=== PATIENT | female | born 1930 | race Caucasian/White ===

== ENCOUNTER → 2016-08-17 | Outpatient (CLI) | payer OTHER ==
[~2016-08-17] MED LIST: ALEVE220 MG PO; ASPERDRINK81 MG PO; ASPIRIN325 MG PO; AVALIDE 12.5 MG1 TA2 PO; CARAFATE1 G1 PO; CIPRO250 MG PO; COMPAZINE10 MG PO; Carafate1 GM PO; DAYPRO600 M1 PO; FISH OIL 10001000 MG PO; Lopressor25 MG PO; METOPROLOL SR50 MG PO; NEXIUM40 MG PO; NORCO 5-325 TA1 EACH PO; OMEPRAZOLE20 MG PO; PRILOSEC20 M2 PO; PRILOSEC20 MG PO; PRILOSEC40 M1 PO; REGLAN 5MG/5 MG/5 ML PO; SIMVASTATIN20 MG PO; SYMBICORT1 AE1 IH; TRIAMTERENE/HCT1 TA3 PO; VICODIN 5/500 505 MG PO; VITAMIN B121000 MC2 SL; VITAMIN D1000 IU PO; VITAMIN D2000 IU PO; VYTORIN 10 MG-21 TA1 PO; ZETIA10 MG PO; Zofran4 MG PO
[2016-08-17 13:19] LABS: BASO % 0.6 % (0.0-1.0); EOS # 0.2 10*3/uL (0.0-0.4); EOS % 3.4 % (1.0-4.0); HEMATOCRIT 39.9 % (37.0-47.0); HEMOGLOBIN 12.8 g/dl (12.0-16.0); LYMPH # 1.3 10*3/uL (1.3-4.4); LYMPH % 24.8 % (27.0-41.0); MEAN CELL VOLUME 88.7 fl (81.0-99.0); MEAN CORPUSCULAR HGB 28.4 pg (27.0-31.0); MEAN CORPUSCULAR HGB CONC 32.1 g/dl (33.0-37.0); MEAN PLATELET VOLUME 9.8 fl (9.6-12.3); MONO # 0.7 10*3/uL (0.1-1.0); MONO % 12.9 % (3.0-9.0); NEUT # 3.1 10*3/uL (2.3-7.9); NEUT % 57.7 % (47.0-73.0); PLATELET COUNT AUTOMATED 239 10*3/uL (130-400); RED CELL DISTRI WIDTH 14.6 % (0-14.5); WHITE BLOOD COUNT 5.3 10*3/uL (4.8-10.8)
[2016-08-17 13:52] LABS: ALBUMIN 3.4 gm/dl (3.1-4.5); ALKALINE PHOSPHATASE 115 U/L (45-117); BILIRUBIN, DIRECT < 0.1 mg/dL (0.0-0.2); BILIRUBIN, TOTAL 0.5 mg/dl (0.2-1.0); BUN 16 mg/dl (7-24); CARBON DIOXIDE 28 mmol/L (21-32); CHLORIDE 104 mmol/L (98-107); EST GLOM FILT AFRICAN AMERICAN > 60 ml/min; GLUCOSE 120 mg/dL (65-99); POTASSIUM 4.5 mmol/L (3.5-5.1); SGOT/AST 11 IU/L (3-35); SGPT/ALT 18 U/L (12-78); SODIUM 139 mmol/L (136-145); TOTAL PROTEIN 7.7 gm/dL (6.4-8.2)
== END | disposition home or self-care (01) ==
LOC: LAB 12:03
PROVIDERS: Family Medicine
DX: Z79.899 Other long term (current) drug therapy (principal)

== ENCOUNTER → 2016-11-21 | Outpatient (CLI) | payer OTHER ==
[2016-11-21 08:09] LABS: BASO % 0.9 % (0.0-1.0); EOS # 0.3 10*3/uL (0.0-0.4); EOS % 5.5 % (1.0-4.0); HEMATOCRIT 39.8 % (37.0-47.0); HEMOGLOBIN 12.8 g/dl (12.0-16.0); LYMPH # 1.1 10*3/uL (1.3-4.4); LYMPH % 23.4 % (27.0-41.0); MEAN CELL VOLUME 87.7 fl (81.0-99.0); MEAN CORPUSCULAR HGB 28.2 pg (27.0-31.0); MEAN CORPUSCULAR HGB CONC 32.2 g/dl (33.0-37.0); MEAN PLATELET VOLUME 9.4 fl (9.6-12.3); MONO # 0.6 10*3/uL (0.1-1.0); MONO % 12.8 % (3.0-9.0); NEUT # 2.6 10*3/uL (2.3-7.9); PLATELET COUNT AUTOMATED 224 10*3/uL (130-400); RED BLOOD COUNT 4.54 10*6/uL (4.10-5.10); RED CELL DISTRI WIDTH 15.6 % (0-14.5); WHITE BLOOD COUNT 4.5 10*3/uL (4.8-10.8)
[2016-11-21 08:33] LABS: ALBUMIN 3.3 gm/dl (3.1-4.5); ALKALINE PHOSPHATASE 115 U/L (45-117); BILIRUBIN, DIRECT < 0.1 mg/dL (0.0-0.2); BUN 20 mg/dl (7-24); CHLORIDE 105 mmol/L (98-107); CREATININE 1.12 mg/dL (0.55-1.02); POTASSIUM 4.3 mmol/L (3.5-5.1); SGOT/AST 10 IU/L (3-35); SGPT/ALT 17 U/L (12-78); SODIUM 140 mmol/L (136-145); TOTAL PROTEIN 7.9 gm/dL (6.4-8.2)
== END | disposition home or self-care (01) ==
LOC: LAB 07:35
PROVIDERS: Family Medicine
DX: I10 Essential (primary) hypertension (principal)

== ENCOUNTER 2016-11-27 14:59 | Inpatient (IN) | payer OTHER ==
[~2016-11-27] VITALS: Ht 152.4 cm; Wt 69.4 kg
--- NOTE | ~2016-11-27 | CON ---
[place], [place] REPORT OF CONSULTATION NAME: ROSINA VARGHESE [facility] #: [id number] UNIT #: [id number] ROOM: 405 DOCTOR: KEVIN GARZA MD BIRTHDATE: [birth year] DOS: 11/28/2016 HISTORY OF PRESENT ILLNESS: This is an 86-year-old -Cypriot woman with a history of hyperlipidemia, hypertension, who had a bioprosthetic aortic valve implanted many years ago. She also may have had a myocardial infarction some 10 years ago or so. She is not sure of it. I do not believe she had any stents deployed. She also has GERD and hyperlipidemia. She does not smoke nor does she drink alcoholic beverages. She lives at home and is independent, cuts her own lawn. Yesterday, she had developed some retrosternal chest discomfort that lasted for a short time and it was not accompanied by any sweating, nausea, shortness of breath or palpitations. She does not have any swelling in the legs, has not had any orthopnea, no neurological symptoms. HOME MEDICATIONS: Symbicort, aspirin 81 daily, metoprolol tartrate 25 b.i.d., omeprazole 20 daily, cyanocobalamin 1000 mcg sublingually daily, Avalide, D Lo, cholecalciferol. PHYSICAL EXAMINATION: GENERAL: Reveals a patient who is pleasant, alert, oriented. She is comfortable. There is no finger clubbing. No thyromegaly is present. VITAL SIGNS: Pulse is 66 and regular, blood pressure 149/72. NECK: JVP is normal. No carotid bruits are present. HEART: Auscultation reveals somewhat loud aortic component of the second heart sound over the aortic area and grade 1/6 early peaking systolic murmur. Good pedal pulses and no edema in lower extremities. LUNGS: Clear to auscultation. LABORATORY DATA: An ECG showed normal sinus rhythm with a normal pattern except for left axis deviation. Troponin I level was normal on admission and maximino to 0.7 and 0.072 and 0.087. IMPRESSION: 1. This patient with known coronary artery disease and remote myocardial infarction, slightly increased troponin level; therefore, acute chest pain. Coronary artery occlusion is a good possibility and I think a Lexiscan Cardiolite study would be appropriate. 2. Prosthetic aortic valve is functioning normally. I thank you on behalf of Dr. Bowman for this consult. [place], [place] REPORT OF CONSULTATION NAME: ABIMAELROSINA Carlo UNIT #: [id number] ROOM: 405 DOCTOR: KEVIN GARZA MD BIRTHDATE: [birth year] KEVIN GARZA MD CM:CONSTR:REPORT OF CONSULTATION [id number] 11/29/16 0113 interface
--- NOTE | ~2016-11-27 | PR ---
[place], [place] PROGRESS NOTE NAME: ROSINA VARGHESE [facility] #: [id number] UNIT #: [id number] ROOM: 405 DOCTOR: FRANC JEREZ MD BIRTHDATE: [birth year] DOS: 11/29/2016 SUBJECTIVE: Discussed with nursing staff. The patient's cardiac status appears to be stable. The patient was seen by Dr. Briceño who was covering for me yesterday. The patient was scheduled for a Lexiscan Cardiolite stress test. The patient refused and the family refused. They do understand the consequences. OBJECTIVE: VITAL SIGNS: Blood pressure is 158/80. NECK: Supple, no JVD. LUNGS: Diminished breath sounds. HEART: Heart sounds are regular. NEUROLOGIC: Stable. REVIEW OF SYSTEMS: As per HPI. LABORATORY DATA: Hemoglobin and hematocrit 12 and 36. A1c is 5.6. The last troponin was 0.087. IMPRESSION: The patient with known coronary artery disease with angina and mildly elevated troponin. The patient was supposed to have a Lexiscan Cardiolite stress test. The patient refuses, so meantime continue the beta-blockers, lipid lowering agents, and aspirin. The patient has a prosthetic aortic valve. Get an echocardiogram. We will review the echocardiogram. Echocardiogram review showed an ejection fraction well preserved to be 65%. No wall motion abnormalities. Prosthetic aortic valve is not very well visualized; if needed, consideration should be given for a NII. PLAN: Continue medical treatment and we will follow up. FRANC JEREZ MD CM:PNTRANS [id number] FRANC JEREZ MD 11/30/16 0211 interface
--- NOTE | ~2016-11-27 | O ---
[place], [place] OPERATIVE NOTE NAME: ROSNIA VARGHESE [facility] #: [id number] UNIT #: [id number] ROOM: 405 DOCTOR: NIALL HOWARDJOYCEMAMMOTHMARIANNA BIRTHDATE: [birth year] DOS: 11/30/2016 GASTROENDOSCOPIC REPORT. INDICATIONS: An 86-year-old patient who has presented with chief complaint of hematemesis, undergoing investigation. The patient has been on ibuprofen 1 tablet in the morning 200 mg plus aspirin 81 mg and the same in the evening. The patient presented with hematemesis her H and H was 13 and 41. Subsequently, the H and H dropped to 10 and 33. Her INR was 0.9. Comprehensive metabolic panel, creatinine 1.6. GFR of 59, lipase was 72. Troponin initially negative, slight elevation subsequently was identified. CT scan, no acute intracranial pathologies. Flat plate of the abdomen, no obstruction. PAST MEDICAL HISTORY: Associated with hypertension, hyperlipidemia, myocardial infarction, gastroesophageal reflux, renal insufficiency. PAST SURGICAL HISTORY: Cholecystectomy, cardiac catheterization, valvular heart disease, knee prosthesis. SOCIAL HISTORY: Nonsmoker, nonalcohol consumer in routine; however, she has a glass of wine periodically. FAMILY HISTORY: Noncontributory. Case has been discussed with the daughter. ALLERGIES: IODINE. MEDICATIONS: List has been reviewed. She has been on Carafate at home as well as other medications including metoclopramide a.c. and bedtime. PROCEDURE: Today's procedure part of investigation is panendoscopy plus biopsy and photographic series. PREMEDICATION: Versed and Diprivan. SCOPE: Olympus forward-viewing gastroscope Q10 video. REPORT: After putting the patient in the left lateral position and after application of lubricant to the scope, the scope was introduced. Thereafter, under direct visualization, I advanced through the length of esophagus without difficulty. Distal esophageal ulceration secondary to reflux in the lower third of the esophagus was expressed and noticed. Hiatal hernia seen. Gastritis and bile reflux etiology was identified. Evidence of Ozzy fundoplication noticed, which is not deeply intact. Gastric pouch was entered. Gastritis was seen. Antral polyp was identified, biopsy from which was obtained, expecting to be hyperplastic polyp. Duodenal bulb, second and third part within normal limits. The patient extubated, tolerated procedure well. IMPRESSION: Distal esophageal ulcer secondary to reflux; hiatal hernia, status post previous Ozzy fundoplication, gastritis of bile reflux etiology; gastric polyp, status post biopsy. [place], [place] OPERATIVE NOTE NAME: ROSINA VARGHESE UNIT #: [id number] ROOM: 405 DOCTOR: NIALL HOWARD,REMEDIOS BIRTHDATE: [birth year] PLAN AND DISCUSSION: We are going to keep her on Protonix 40 mg IV b.i.d., sucralfate 2 gram before meals and at bedtime, Reglan 5 mg before meals and at bedtime. Elevation of the head of the bed 6 inches all time. Gaviscon 2 tablets at bedtime to be chewed. Furthermore, we have found that the patient has greater than 100,000 bacteria in her urine, suspected to be E. coli; therefore, sensitivity list has been reviewed and we are choosing ciprofloxacin 400 mg IV b.i.d. We are going to continue with IV hydration and clinical reassessment. Zofran for antiemetics. REMEDIOS TIERNEY MD CM:OPRECORD:OPERATIVE NOTE [id number] REMEDIOS TIERNEY MD 11/30/16 1305 interface
[2016-11-27 15:16] VITALS: BP 160/90
[2016-11-27 16:00] VITALS: BP 158/70
[2016-11-27 16:01] LABS: BASO % 0.6 % (0.0-1.0); EOS # 0.1 10*3/uL (0.0-0.4); EOS % 0.8 % (1.0-4.0); HEMATOCRIT 41.7 % (37.0-47.0); HEMOGLOBIN 13.8 g/dl (12.0-16.0); LYMPH # 1.3 10*3/uL (1.3-4.4); LYMPH % 19.9 % (27.0-41.0); MEAN CELL VOLUME 84.8 fl (81.0-99.0); MEAN CORPUSCULAR HGB CONC 33.1 g/dl (33.0-37.0); MEAN PLATELET VOLUME 9.3 fl (9.6-12.3); MONO # 0.5 10*3/uL (0.1-1.0); MONO % 7.3 % (3.0-9.0); NEUT # 4.7 10*3/uL (2.3-7.9); NEUT % 71.1 % (47.0-73.0); PLATELET COUNT AUTOMATED 244 10*3/uL (130-400); RED BLOOD COUNT 4.92 10*6/uL (4.10-5.10); RED CELL DISTRI WIDTH 15.3 % (0-14.5); WHITE BLOOD COUNT 6.6 10*3/uL (4.8-10.8)
[2016-11-27 16:10] LABS: ACT PARTIAL THROMBO TIME 26.6 SECONDS (20.8-31.5); INTERNATIONAL NORM RATIO 0.9 (2.0-3.5)
[2016-11-27 16:17] LABS: ALBUMIN 3.6 gm/dl (3.1-4.5); BUN 20 mg/dl (7-24); CHLORIDE 104 mmol/L (98-107); CREATININE 1.06 mg/dL (0.55-1.02); LIPASE 72 U/L (73-393); MAGNESIUM 1.7 mg/dL (1.5-2.1); SGOT/AST 15 IU/L (3-35); SGPT/ALT 17 U/L (12-78); SODIUM 140 mmol/L (136-145); TOTAL PROTEIN 8.6 gm/dL (6.4-8.2)
[2016-11-27 16:20] LABS: ALKALINE PHOSPHATASE 127 U/L (45-117)
[2016-11-27 16:23] LABS: TROPONIN I < 0.015 ng/ml (<0.045)
--- NOTE | 2016-11-27 18:05 | NUR ---
A 86, admitted to , under the services of CORINA Alvarez DO with a diagnosis of SHORTNESS OF BREATH. Chief complaint is SHORTNESS OF BREATH. Patient arrived via bed from ER. Monitor applied. Initial assessment completed. Vital signs taken and recorded. CORINA ALVAREZ DO notified of admission to the unit. Orders received. See assessment for past medical history, medications and allergies. Patient and/or family oriented to unit. [facility]. Clothing/patient valuable form completed. RADAMES YO
[2016-11-27] MEDS ORDERED: AVALIDE 150-121 EACH PO (18:09)
[2016-11-27] MEDS ORDERED: SYMBICORT INH (18:13)
--- NOTE | 2016-11-27 19:33 | NUR ---
NOTIFIED OF ELEVATED TROPONIN 0.072.
--- NOTE | 2016-11-27 19:36 | NUR ---
IN TO SEE PATIENT AT THIS TIME. PT ALERT AND ORIENTED X3. PATIENT DENIES CHEST PAIN, BUT STATES SHE HAS HAD MINOR EPIGASTRIC DISCOMFORT. SHE STATES SHE THINKS IT IS FROM HER NAUSEA/VOMITING. PATIENT ENCOURAGED TO USE CALL LIGHT FOR ANY NEW/WORSENING PAIN IN CHEST/EPIGASTRIC REGION. PER , RN TO MAKE SURE EKG ON CHART. EKG FROM TODAY ON CHART. WILL CONTINUE TO MONITOR PATIENT. CALL LIGHT LEFT IN REACH. FAMILY AT BEDSIDE.
[2016-11-27 20:00] VITALS: BP 158/70
--- NOTE | 2016-11-27 22:41 | NUR ---
PATIENT MEDICATED WITH IV ZOFRAN PER ORDER FOR 3 EPISODES OF EMESIS AND NAUSEA. NEW GOWN, WASHCLOTHS, CRACKERS/GINGERALE PROVIDED FOR COMFORT MEASURES. WILL MONITOR EFFECTIVENESS. CALL LIGHT LEFT WITHIN REACH.
--- NOTE | 2016-11-27 22:42 | NUR ---
DR MAZA MADE AWARE OF CRITICAL TROPONIN 0.087 HE SAID HE IS GOING TO PUT IN A CONSULT ORDER FOR CARDIOLOGY
--- NOTE | 2016-11-27 23:34 | NUR ---
NOTIFIED OF CONSULT. ORDER FOR ECHOCARDIOGRAM IN AM RECEIVED. AWARE THAT NO OTHER TROPONINS HAVE BEEN ORDERED. STATES HE DOES NOT WANT ANY MORE ORDERED AT THIS TIME.
[2016-11-28] VITALS: BP 149/72
--- NOTE | 2016-11-28 05:36 | NUR ---
PATIENT MEDICATED WITH IV ZOFRAN FOR C/O NAUSEA AND VOMITING. WILL MONITOR EFFECTIVENESS. CALL LIGHT LEFT IN REACH.
[2016-11-28 05:41] LABS: BILIRUBIN NEGATIVE (NEGATIVE); BLOOD 2+ (NEGATIVE); CLARITY SL CLOUDY (CLEAR); COLOR YELLOW (YELLOW); GLUCOSE NEGATIVE (NEGATIVE); KETONE TRACE (NEGATIVE); LEUKO ESTERASE NEGATIVE (NEGATIVE); NITRITE NEGATIVE (NEGATIVE); PH 5.5 (5.0-9.0); UROBILINOGEN 0.2 E.U./dl (0.2-1.0)
[2016-11-28 05:52] LABS: BACTERIA 4+; RBC 16-20 rbc/hpf (0-2)
--- NOTE | 2016-11-28 06:11 | NUR ---
EARLIER MEDICATION APPEARS EFFECTIVE. PATIENT SLEEPING WITH NO EPISODES OF EMESIS. WILL MONITOR.
[2016-11-28 06:22] LABS: BASO % 0.4 % (0.0-1.0); HEMATOCRIT 45.7 % (37.0-47.0); HEMOGLOBIN 14.9 g/dl (12.0-16.0); LYMPH # 0.7 10*3/uL (1.3-4.4); LYMPH % 8.2 % (27.0-41.0); MEAN CELL VOLUME 84.9 fl (81.0-99.0); MEAN CORPUSCULAR HGB 27.7 pg (27.0-31.0); MEAN CORPUSCULAR HGB CONC 32.6 g/dl (33.0-37.0); MEAN PLATELET VOLUME 9.7 fl (9.6-12.3); MONO # 0.5 10*3/uL (0.1-1.0); MONO % 5.6 % (3.0-9.0); NEUT # 7.2 10*3/uL (2.3-7.9); NEUT % 84.4 % (47.0-73.0); PLATELET COUNT AUTOMATED 268 10*3/uL (130-400); RED BLOOD COUNT 5.38 10*6/uL (4.10-5.10); RED CELL DISTRI WIDTH 15.4 % (0-14.5); WHITE BLOOD COUNT 8.5 10*3/uL (4.8-10.8)
[2016-11-28 06:50] LABS: ALBUMIN 3.5 gm/dl (3.1-4.5); CREATININE 1.09 mg/dL (0.55-1.02); MAGNESIUM 1.8 mg/dL (1.5-2.1); PHOSPHOROUS 3.3 mg/dL (2.5-4.9); POTASSIUM 4.1 mmol/L (3.5-5.1); TOTAL PROTEIN 8.1 gm/dL (6.4-8.2)
[2016-11-28 06:56] LABS: ACT PARTIAL THROMBO TIME 25.5 SECONDS (20.8-31.5); THYROID STIM HORMONE (HS) 1.28 uIU/ml (0.358-4.75)
[2016-11-28 07:34] LABS: VITAMIN D, 25-HYDROXY 37.7 ng/mL (30-100)
[2016-11-28 08:00] VITALS: BP 116/62
--- NOTE | 2016-11-28 08:30 | NUR ---
Swatch Paster in to talk to patient. Patient states lives at HOME IN [address] ALONE with PT DRIVES. CUTS HER OWN GRASS, COOKS AND DOES HER LAUNDRY. DAUGHTER LIVES ON SAME STREET AND CHECKS ON HER AND HELPS IF NEEDED.. There are 0 steps in the home. Physician: DR FORTUNE Pharmacy: [facility] Home health services: NONE Patient's level of ADLs: INDEPENDENT Patient has working utilities: YES DME: NONE Follow-up physician's appointment after d/c: Does patient want to access PORTAL?: Discharge plan HOME. CRISTINO TOM
[2016-11-28 12:00] VITALS: BP 152/70
--- NOTE | 2016-11-28 12:28 | NUR ---
ZOFRAN 4 MG GIVEN FOR C/O NAUSEA.
[2016-11-28 16:00] VITALS: BP 146/68
--- NOTE | 2016-11-28 17:52 | NUR ---
NOTIFIED DR JEREZ OF PT WISHES NOT TO HAVE LEXISCAN DONE IN AM, DAUGHTER AND GRANDAUGHTER PRESENT AND AGREED D/T PT GETS "VIOLENTLY NAUSEOUS " WHEN SHE HAS STRESS TESTS DONE. PT FLATLY REFUSES TO DO STRESS AND DR JEREZ ORDERED IT CANCELLED,
--- NOTE | 2016-11-28 19:48 | NUR ---
PATIENT AWAKE IN BED AT THIS TIME. PATIENT STATES SHE IS FEELING MUCH BETTER THAN YESTERDAY AND STATES SHE IS NOT NAUSEOUS. NO OTHER COMPLAINTS VOICED AT THIS TIME. WILL MONITOR PATIENT. CALL LIGHT LEFT IN REACH.
[2016-11-28 20:00] VITALS: BP 139/77
--- NOTE | 2016-11-28 22:39 | NUR ---
PATIENT MEDICATED WITH IV ZOFRAN PER PRN ORDER FOR NAUSEA. PATIENT STATES SHE IS STILL FEELING MUCH BETTER THAN SHE HAD FELT YESTERDAY, BUT STATES SHE DOESN'T WANT TO START VOMITING AGAIN. WILL MONITOR EFFECTIVENESS. CALL LIGHT LEFT IN REACH. N
--- NOTE | 2016-11-28 23:38 | NUR ---
PATIENT STATES EARLIER MEDICATION WAS EFFECTIVE. PATIENT DENIES NAUSEA AT CURRENT TIME. WILL CONTINUE TO MONITOR. CALL LIGHT IN REACH.
[2016-11-29] VITALS: BP 158/81
[2016-11-29 07:03] LABS: BASO % 0.7 % (0.0-1.0); EOS % 0.5 % (1.0-4.0); LYMPH # 1.1 10*3/uL (1.3-4.4); LYMPH % 18.3 % (27.0-41.0); MEAN CELL VOLUME 85.2 fl (81.0-99.0); MEAN CORPUSCULAR HGB 28.2 pg (27.0-31.0); MEAN CORPUSCULAR HGB CONC 33.1 g/dl (33.0-37.0); MEAN PLATELET VOLUME 9.4 fl (9.6-12.3); MONO # 0.7 10*3/uL (0.1-1.0); MONO % 11.3 % (3.0-9.0); NEUT % 68.7 % (47.0-73.0); PLATELET COUNT AUTOMATED 189 10*3/uL (130-400); RED BLOOD COUNT 4.26 10*6/uL (4.10-5.10); RED CELL DISTRI WIDTH 15.5 % (0-14.5); WHITE BLOOD COUNT 5.8 10*3/uL (4.8-10.8)
[2016-11-29 07:05] LABS: HEMATOCRIT 36.3 % (37.0-47.0)
[2016-11-29 07:36] LABS: BUN 22 mg/dl (7-24); CHLORIDE 105 mmol/L (98-107); CREATININE 1.03 mg/dL (0.55-1.02); POTASSIUM 3.9 mmol/L (3.5-5.1); SODIUM 139 mmol/L (136-145)
[2016-11-29 08:00] VITALS: BP 122/74
[2016-11-29 12:00] VITALS: BP 120/49
--- NOTE | 2016-11-29 13:59 | NUR ---
DR POLO CALLED TO REQUEST SOMETHING FOR DIARRHEA.
[2016-11-29 16:00] VITALS: BP 158/76
[2016-11-29 20:00] VITALS: BP 128/65
[2016-11-30] VITALS (9 sets, daily range): BP systolic 111–142; BP diastolic 42–88
--- NOTE | 2016-11-30 04:03 | NUR ---
PT ASLEEP IN BED AT THIS TIME. RESPIRATIONS EASY, NO S/S OF DISTRESS NOTED. WILL MONITOR. CALL LIGHT IN REACH.
[2016-11-30 06:59] LABS: BASO % 0.7 % (0.0-1.0); EOS # 0.1 10*3/uL (0.0-0.4); HEMOGLOBIN 10.5 g/dl (12.0-16.0); LYMPH # 0.9 10*3/uL (1.3-4.4); LYMPH % 20.4 % (27.0-41.0); MEAN CELL VOLUME 86.8 fl (81.0-99.0); MEAN CORPUSCULAR HGB 27.6 pg (27.0-31.0); MEAN CORPUSCULAR HGB CONC 31.8 g/dl (33.0-37.0); MEAN PLATELET VOLUME 9.8 fl (9.6-12.3); MONO # 0.6 10*3/uL (0.1-1.0); MONO % 12.2 % (3.0-9.0); NEUT # 2.9 10*3/uL (2.3-7.9); PLATELET COUNT AUTOMATED 154 10*3/uL (130-400); RED CELL DISTRI WIDTH 15.5 % (0-14.5); WHITE BLOOD COUNT 4.6 10*3/uL (4.8-10.8)
--- NOTE | 2016-11-30 07:45 | NUR ---
PT DOWN FOR EGD AT THIS TIME.
--- NOTE | 2016-11-30 09:50 | NUR ---
PT BACK FROM EGD AT THIS TIME.
--- NOTE | 2016-11-30 11:04 | NUR ---
SPOKE WITH DR TIERNEY, STATED TO GIVE PT A GERD DIET AND TO KEEP HOB ELEVATED 30 DEGREES AT ALL TIMES.
--- NOTE | 2016-11-30 13:54 | NUR ---
DR POLO NOTIFIED OF PT'S COMPLAINTS OF 3 EPISODES OF DIARRHEA, STATED TO COLLECT STOOL FOR CDIFF BEFORE WE GIVE HER ANYTHING FOR THE DIARRHEA.
--- NOTE | 2016-11-30 14:00 | NUR ---
PT REQUESTING SOMETHING FOR HER DIARRHEA, EDUCATED PT ON IMPORTANCE OF OBTAINING STOOL SAMPLE PRIOR TO GIVING HER SOMETHING FOR THE DIARRHEA. PT VERBALIZED UNDERSTANDING.
--- NOTE | 2016-11-30 18:00 | NUR ---
PT RESTING IN BED, NO DISTRESS NOTED. CALL LIGHT WITHIN REACH.
[2016-12-01] VITALS: BP 107/65; BP 120/50
[2016-12-01 08:00] VITALS: BP 111/42
[2016-12-01 08:05] LABS: BASO % 0.7 % (0.0-1.0); EOS # 0.2 10*3/uL (0.0-0.4); EOS % 3.5 % (1.0-4.0); HEMATOCRIT 31.4 % (37.0-47.0); LYMPH # 0.8 10*3/uL (1.3-4.4); LYMPH % 17.5 % (27.0-41.0); MEAN CELL VOLUME 87.5 fl (81.0-99.0); MEAN CORPUSCULAR HGB 27.9 pg (27.0-31.0); MEAN CORPUSCULAR HGB CONC 31.8 g/dl (33.0-37.0); MEAN PLATELET VOLUME 9.7 fl (9.6-12.3); MONO # 0.5 10*3/uL (0.1-1.0); MONO % 11.9 % (3.0-9.0); NEUT # 2.8 10*3/uL (2.3-7.9); NEUT % 65.7 % (47.0-73.0); PLATELET COUNT AUTOMATED 143 10*3/uL (130-400); RED BLOOD COUNT 3.59 10*6/uL (4.10-5.10); RED CELL DISTRI WIDTH 15.3 % (0-14.5); WHITE BLOOD COUNT 4.3 10*3/uL (4.8-10.8)
--- NOTE | 2016-12-01 10:15 | NUR ---
DR POLO IN TO SEE PT AT THIS TIME.
--- NOTE | 2016-12-01 11:07 | NUR ---
DR SINGLETARY IN TO SEE PT AT THIS TIME.
[2016-12-01 12:00] VITALS: BP 152/76
[2016-12-01] MEDS ORDERED: LOPRESSOR25 MG PO (13:31)
[2016-12-01] MEDS ORDERED: Carafate1 GM/10 ML PO ×2 (13:31→13:49)
[2016-12-01] MEDS ORDERED: B12100 MC1 PO (13:31)
[2016-12-01] MEDS ORDERED: CIPRO500 MG PO (13:31)
[2016-12-01] MEDS ORDERED: HYDR25T PO (13:31)
[2016-12-01] MEDS ORDERED: PROTONIX40 MG PO ×2 (13:34→13:49)
--- NOTE | 2016-12-01 14:25 | NUR ---
Discharge instructions reviewed with patient/family. Patient receptive and verbalizes understanding. Follow-up care arranged. Written instructions given to patient/family. Pt transported to [facility] via wheelchair, accompanied by staff. LUBA GIRON
== END 2016-12-01 14:25 | disposition home or self-care (01) | DRG 392 ==
LOC: ED 14:59 → 4E 17:25
PROVIDERS: Internal Medicine; Internal Medicine Nephrology; Physician Assistant; ADMIT Internal Medicine
PROC: 0DB58ZX Excision of Esophagus, Via Natural or Artificial Opening Endoscopic, Diagnostic (ICD-10-PCS; principal; 2016-11-30)
PROC: 0DB68ZX Excision of Stomach, Via Natural or Artificial Opening Endoscopic, Diagnostic (ICD-10-PCS; principal; 2016-11-30)
DX: K21.9 Gastro-esophageal reflux disease without esophagitis (principal); R65.10 Systemic inflammatory response syndrome (SIRS) of non-infectious origin without acute organ dysfunction; E86.0 Dehydration; K92.2 Gastrointestinal hemorrhage, unspecified; N18.3 Chronic kidney disease, stage 3 (moderate); E83.52 Hypercalcemia; I08.1 Rheumatic disorders of both mitral and tricuspid valves; K22.10 Ulcer of esophagus without bleeding; I12.9 Hypertensive chronic kidney disease with stage 1 through stage 4 chronic kidney disease, or unspecified chronic kidney disease; R73.9 Hyperglycemia, unspecified; Z96.651 Presence of right artificial knee joint; J45.909 Unspecified asthma, uncomplicated; I25.119 Atherosclerotic heart disease of native coronary artery with unspecified angina pectoris; K31.7 Polyp of stomach and duodenum; R74.0 Nonspecific elevation of levels of transaminase and lactic acid dehydrogenase [LDH]; E78.5 Hyperlipidemia, unspecified; E53.8 Deficiency of other specified B group vitamins; E66.3 Overweight; K44.9 Diaphragmatic hernia without obstruction or gangrene; Z91.041 Radiographic dye allergy status; Z79.82 Long term (current) use of aspirin; Z79.899 Other long term (current) drug therapy; Z90.49 Acquired absence of other specified parts of digestive tract; Z95.2 Presence of prosthetic heart valve; Z82.49 Family history of ischemic heart disease and other diseases of the circulatory system; Z82.3 Family history of stroke; Z80.9 Family history of malignant neoplasm, unspecified; Z83.79 Family history of other diseases of the digestive system; Z80.8 Family history of malignant neoplasm of other organs or systems; I25.2 Old myocardial infarction; Z68.29 Body mass index [BMI] 29.0-29.9, adult

== ENCOUNTER 2016-12-29 18:02 | Inpatient (IN) | payer OTHER ==
[~2016-12-29] VITALS: Ht 152.4 cm; Wt 67.2 kg
[~2016-12-29 18:02] MED LIST changes: +AVALIDE 150-121 EACH PO; +B12100 MC1 PO; +CIPRO500 MG PO; +Carafate1 GM/10 ML PO; +HYDR25T PO; +LOPRESSOR25 MG PO; +PROTONIX40 MG PO; +SYMBICORT INH
[2016-12-29 18:34] VITALS: BP 169/75
[2016-12-29 18:47] LABS: BASO % 0.5 % (0.0-1.0); EOS # 0.3 10*3/uL (0.0-0.4); EOS % 4.6 % (1.0-4.0); HEMATOCRIT 39.8 % (37.0-47.0); HEMOGLOBIN 12.9 g/dl (12.0-16.0); LYMPH # 1.2 10*3/uL (1.3-4.4); LYMPH % 19.7 % (27.0-41.0); MEAN CELL VOLUME 84.3 fl (81.0-99.0); MEAN CORPUSCULAR HGB 27.3 pg (27.0-31.0); MEAN CORPUSCULAR HGB CONC 32.4 g/dl (33.0-37.0); MEAN PLATELET VOLUME 9.5 fl (9.6-12.3); MONO # 0.4 10*3/uL (0.1-1.0); MONO % 6.6 % (3.0-9.0); NEUT # 4.1 10*3/uL (2.3-7.9); NEUT % 68.1 % (47.0-73.0); PLATELET COUNT AUTOMATED 199 10*3/uL (130-400); RED BLOOD COUNT 4.72 10*6/uL (4.10-5.10); RED CELL DISTRI WIDTH 14.9 % (0-14.5); WHITE BLOOD COUNT 6.1 10*3/uL (4.8-10.8)
[2016-12-29 18:52] VITALS: BP 156/48
[2016-12-29 18:56] LABS: ACT PARTIAL THROMBO TIME 27.7 SECONDS (20.8-31.5); INTERNATIONAL NORM RATIO 0.9 (2.0-3.5)
[2016-12-29 19:04] LABS: ALBUMIN 3.6 gm/dl (3.1-4.5); ALKALINE PHOSPHATASE 117 U/L (45-117); BUN 19 mg/dl (7-24); CHLORIDE 104 mmol/L (98-107); CREATININE 1.02 mg/dL (0.55-1.02); MAGNESIUM 1.8 mg/dL (1.5-2.1); POTASSIUM 4.4 mmol/L (3.5-5.1); SGOT/AST 16 IU/L (3-35); SGPT/ALT 20 U/L (12-78); SODIUM 139 mmol/L (136-145); TOTAL PROTEIN 7.8 gm/dL (6.4-8.2)
[2016-12-29 19:07] LABS: TROPONIN I < 0.015 ng/ml (<0.045)
[2016-12-29 20:50] VITALS: BP 147/55
--- NOTE | 2016-12-29 20:50 | NUR ---
A 86, admitted to 5E, under the services of CAN Todd DO with a diagnosis of CHEST PAIN. Chief complaint is CHEST PAIN. Patient arrived via bed from ER. Monitor applied. Initial assessment completed. Vital signs taken and recorded. CAN TODD DO notified of admission to the unit. Orders received. See assessment for past medical history, medications and allergies. Patient and/or family oriented to unit. visitation policy reviewed. Clothing/patient valuable form completed. EMMANUEL MARISCAL
[2016-12-29 21:05] VITALS: BP 147/55
--- NOTE | 2016-12-29 21:15 | NUR ---
ATTEMPTED TO CALL DR. CIFUENTES. DR. GARZA WIRE SAWYER AND SAID TO CALL DR. CIFUENTES IN THE AM.
[2016-12-29] MEDS ORDERED: OMEPRAZOLE MAGN20 MG PO (22:47)
[2016-12-30] VITALS: BP 128/44
--- NOTE | 2016-12-30 04:32 | NUR ---
RESTING IN BED WITH EYES CLOSED. NO SIGNS OR SYMPTOMS OF DISTRESS NOTED THROUGHOUT SHIFT. AROUSES TO VERBAL STIMULI. WILL CONTINUE TO MONITOR. CALL LIGHT IN REACH.
[2016-12-30 06:49] LABS: BASO % 0.7 % (0.0-1.0); EOS # 0.3 10*3/uL (0.0-0.4); EOS % 6.2 % (1.0-4.0); HEMATOCRIT 35.6 % (37.0-47.0); HEMOGLOBIN 11.4 g/dl (12.0-16.0); LYMPH # 1.1 10*3/uL (1.3-4.4); LYMPH % 26.1 % (27.0-41.0); MEAN CELL VOLUME 83.8 fl (81.0-99.0); MEAN CORPUSCULAR HGB 26.8 pg (27.0-31.0); MEAN PLATELET VOLUME 10.3 fl (9.6-12.3); MONO # 0.4 10*3/uL (0.1-1.0); MONO % 10.3 % (3.0-9.0); NEUT # 2.3 10*3/uL (2.3-7.9); NEUT % 56.2 % (47.0-73.0); PLATELET COUNT AUTOMATED 178 10*3/uL (130-400); RED BLOOD COUNT 4.25 10*6/uL (4.10-5.10); WHITE BLOOD COUNT 4.1 10*3/uL (4.8-10.8)
--- NOTE | 2016-12-30 06:55 | NUR ---
DR. CIFUENTES NOTIFIED OF CONSULT. NEW ORDER TO GET ECHO IF NOT DONE IN 6 MONTHS. ECHO DONE 2016.
[2016-12-30 07:03] LABS: BUN 17 mg/dl (7-24); CHLORIDE 108 mmol/L (98-107); POTASSIUM 3.5 mmol/L (3.5-5.1); SODIUM 142 mmol/L (136-145)
[2016-12-30 07:11] LABS: ACT PARTIAL THROMBO TIME 28.5 SECONDS (20.8-31.5)
[2016-12-30 07:46] LABS: VITAMIN D, 25-HYDROXY 32.3 ng/mL (30-100)
[2016-12-30 08:00] VITALS: BP 126/64; BP 128/64
--- NOTE | 2016-12-30 08:00 | NUR ---
Manufacturing Recruiter in to talk to patient. Patient states lives at HOME ALONE with . There are 0 steps in the home. Physician: DR FORTUNE [facility] Home health services: NONE Patient's level of ADLs: INDEPENDENT Patient has working utilities: YES DME: NONE Follow-up physician's appointment after d/c: WILL BE MADE PRIOR TO DC Does patient want to access PORTAL?: Discharge plan . VAISHALICRISTINO PT DRIVES, CUTS HER GRASS, DOES OWN LAUNDRY AND COOKING. DAUGHTER LIVES ON SAME STREET AND CHECKS ON HER FREQ. DENIES DC NEEDS.
--- NOTE | 2016-12-30 08:49 | NUR ---
RESTING AT SIDE OF BED, EASY RESPIRATIONS WITH SKIN W/D. PT DENIES C/O CHEST PAIN OR S.O.B AT PRESENT TIME. ADMITS TO S.O.B OCCASSIONALLY WITH EXERTION. DENIES C/O ABDOMINAL PAIN OR NAUSEA. IVF PER ORDERS. SEE SHIFT ASSESSMENT.
--- NOTE | 2016-12-30 10:42 | NUR ---
DR STEVEN IN TO SEE PT.
--- NOTE | 2016-12-30 10:43 | NUR ---
PT ATE & TOLERATED BREAKFAST. NO NAUSEA OR ABD PAIN.
[2016-12-30 12:00] VITALS: BP 129/61
[2016-12-30 16:00] VITALS: BP 102/51
[2016-12-30 20:00] VITALS: BP 142/59
--- NOTE | 2016-12-30 20:15 | NUR ---
PATIENT IS A/OX3, DENEIS PAIN, NVD, AND CP. THE PATIENT HAS NO CONCERNS AT THIS TIME.
[2016-12-31] VITALS: BP 131/67
--- NOTE | 2016-12-31 01:15 | NUR ---
PATIENT RESTING IN BED WITH EYES CLOSED. NO SIGNS OR SYMPTOMS OF DISTRESS NOTED. AROUSES EASILY TO VERBAL STIMULI. DENIES COMPLAINTS OF PAIN OR DISCOMFORT. WILL CONTINUE TO MONITOR. CALL LIGHT IN REACH.
[2016-12-31 07:09] LABS: BASO % 0.5 % (0.0-1.0); EOS # 0.3 10*3/uL (0.0-0.4); EOS % 6.4 % (1.0-4.0); HEMATOCRIT 37.6 % (37.0-47.0); HEMOGLOBIN 11.8 g/dl (12.0-16.0); LYMPH # 1.1 10*3/uL (1.3-4.4); MEAN CELL VOLUME 85.8 fl (81.0-99.0); MEAN CORPUSCULAR HGB 26.9 pg (27.0-31.0); MEAN CORPUSCULAR HGB CONC 31.4 g/dl (33.0-37.0); MEAN PLATELET VOLUME 9.9 fl (9.6-12.3); MONO # 0.4 10*3/uL (0.1-1.0); MONO % 10.8 % (3.0-9.0); NEUT # 2.1 10*3/uL (2.3-7.9); NEUT % 53.8 % (47.0-73.0); PLATELET COUNT AUTOMATED 181 10*3/uL (130-400); RED BLOOD COUNT 4.38 10*6/uL (4.10-5.10); WHITE BLOOD COUNT 3.9 10*3/uL (4.8-10.8)
[2016-12-31 07:39] LABS: BUN 13 mg/dl (7-24); CHLORIDE 111 mmol/L (98-107); CREATININE 0.88 mg/dL (0.55-1.02); POTASSIUM 3.9 mmol/L (3.5-5.1); SODIUM 144 mmol/L (136-145)
[2016-12-31 08:00] VITALS: BP 148/72
--- NOTE | 2016-12-31 10:40 | NUR ---
PT RESTING. NO ACUTE DISTRESS NOTED. PT DENIES COMPLAINTS.
[2016-12-31 12:00] VITALS: BP 142/76
--- NOTE | 2016-12-31 12:29 | NUR ---
DR STEVEN MADE AWARE THAT PT NOT SEEN BY CARDIOLOGY YET. PT DOES ALREADY HAVE APPT. WITH DR JEREZ ON THE Dec.
--- NOTE | 2016-12-31 14:18 | NUR ---
Discharge instructions reviewed with patient/family. Patient receptive and verbalizes understanding. Follow-up care arranged. Written instructions given to patient/family. PAULINO BROWN
== END 2016-12-31 14:18 | disposition home or self-care (01) | DRG 391 ==
LOC: ED 18:02 → 5E 19:49 → EDHOLD 19:49 → 5E 20:23
PROVIDERS: Emergency Medicine; Internal Medicine; ADMIT Internal Medicine
DX: K21.0 Gastro-esophageal reflux disease with esophagitis (principal); J18.9 Pneumonia, unspecified organism; K22.10 Ulcer of esophagus without bleeding; R07.89 Other chest pain; D72.810 Lymphocytopenia; R73.9 Hyperglycemia, unspecified; E78.5 Hyperlipidemia, unspecified; N18.3 Chronic kidney disease, stage 3 (moderate); I12.9 Hypertensive chronic kidney disease with stage 1 through stage 4 chronic kidney disease, or unspecified chronic kidney disease; Z96.651 Presence of right artificial knee joint; J45.909 Unspecified asthma, uncomplicated; Z91.041 Radiographic dye allergy status; Z79.899 Other long term (current) drug therapy; I25.2 Old myocardial infarction; Z90.49 Acquired absence of other specified parts of digestive tract; Z95.2 Presence of prosthetic heart valve; Z82.3 Family history of stroke; Z84.89 Family history of other specified conditions; Z80.8 Family history of malignant neoplasm of other organs or systems; Z82.49 Family history of ischemic heart disease and other diseases of the circulatory system; Z79.82 Long term (current) use of aspirin

== ENCOUNTER → 2017-05-29 | Outpatient (CLI) | payer OTHER ==
[~2017-05-29] MED LIST changes: +OMEPRAZOLE MAGN20 MG PO
[2017-05-29 08:37] LABS: BASO % 0.8 % (0.0-1.0); EOS # 0.3 10*3/uL (0.0-0.4); EOS % 5.4 % (1.0-4.0); HEMATOCRIT 37.2 % (37.0-47.0); HEMOGLOBIN 11.5 g/dl (12.0-16.0); LYMPH # 1.6 10*3/uL (1.3-4.4); LYMPH % 32.1 % (27.0-41.0); MEAN CELL VOLUME 83.8 fl (81.0-99.0); MEAN CORPUSCULAR HGB 25.9 pg (27.0-31.0); MEAN CORPUSCULAR HGB CONC 30.9 g/dl (33.0-37.0); MEAN PLATELET VOLUME 9.7 fl (9.6-12.3); MONO # 0.6 10*3/uL (0.1-1.0); MONO % 12.5 % (3.0-9.0); NEUT # 2.5 10*3/uL (2.3-7.9); NEUT % 48.8 % (47.0-73.0); PLATELET COUNT AUTOMATED 245 10*3/uL (130-400); RED BLOOD COUNT 4.44 10*6/uL (4.10-5.10); RED CELL DISTRI WIDTH 16.1 % (0-14.5)
[2017-05-29 08:52] LABS: ALBUMIN 3.5 gm/dl (3.1-4.5); ALKALINE PHOSPHATASE 110 U/L (45-117); BILIRUBIN, DIRECT < 0.1 mg/dL (0.0-0.2); BUN 25 mg/dl (7-24); CHLORIDE 103 mmol/L (98-107); CHOLESTEROL 244 mg/dL (<200); CREATININE 1.08 mg/dL (0.55-1.02); HDL CHOLESTEROL 41 mg/dl (40-60); LDL CHOLESTEROL 141 mg/dL (9-159); POTASSIUM 4.2 mmol/L (3.5-5.1); SGOT/AST 18 IU/L (3-35); SGPT/ALT 18 U/L (12-78); SODIUM 139 mmol/L (136-145); THYROXINE (T4) TOTAL 5.9 ug/dl (4.8-13.9); TOTAL PROTEIN 7.2 gm/dL (6.4-8.2); TRIGLYCERIDES 309 mg/dl (<150); VLDL CHOLESTEROL 62 mg/dL (6-40)
== END | disposition home or self-care (01) ==
LOC: LAB 07:36
PROVIDERS: Family Medicine
DX: I25.10 Atherosclerotic heart disease of native coronary artery without angina pectoris (principal); I10 Essential (primary) hypertension

== ENCOUNTER → 2017-12-05 | Outpatient (CLI) | payer OTHER ==
[2017-12-05 09:31] LABS: BASO # 0.1 10*3/uL (0.0-0.1); BASO % 0.9 % (0.0-1.0); EOS # 0.6 10*3/uL (0.0-0.4); EOS % 10.2 % (1.0-4.0); HEMATOCRIT 36.9 % (37.0-47.0); HEMOGLOBIN 11.9 g/dl (12.0-16.0); LYMPH # 1.4 10*3/uL (1.3-4.4); LYMPH % 25.7 % (27.0-41.0); MEAN CORPUSCULAR HGB 27.4 pg (27.0-31.0); MEAN CORPUSCULAR HGB CONC 32.2 g/dl (33.0-37.0); MEAN PLATELET VOLUME 9.1 fl (9.6-12.3); MONO # 0.7 10*3/uL (0.1-1.0); NEUT # 2.8 10*3/uL (2.3-7.9); NEUT % 50.8 % (47.0-73.0); PLATELET COUNT AUTOMATED 242 10*3/uL (130-400); RED BLOOD COUNT 4.34 10*6/uL (4.10-5.10); RED CELL DISTRI WIDTH 15.9 % (0-14.5); WHITE BLOOD COUNT 5.4 10*3/uL (4.8-10.8)
== END | disposition home or self-care (01) ==
LOC: LAB 08:51
PROVIDERS: Family Medicine
DX: D64.9 Anemia, unspecified (principal)

== ENCOUNTER 2018-08-31 10:10 | Emergency (ER) | payer OTHER ==
[~2018-08-31] VITALS: Ht 152.4 cm; Wt 69.4 kg
[2018-08-31 10:12] VITALS: BP 147/60
[2018-08-31] MEDS ORDERED: PREDNISONE20 M1 PO (10:39)
== END 2018-08-31 11:02 | disposition home or self-care (01) ==
LOC: ED 10:10
DX: L25.9 Unspecified contact dermatitis, unspecified cause (principal); Z98.890 Other specified postprocedural states; Z90.49 Acquired absence of other specified parts of digestive tract; Z96.651 Presence of right artificial knee joint; Z79.899 Other long term (current) drug therapy; Z79.82 Long term (current) use of aspirin

== ENCOUNTER 2018-11-17 19:58 | Emergency (ER) | payer OTHER ==
[~2018-11-17] VITALS: Ht 152.4 cm; Wt 65.8 kg
[~2018-11-17 19:58] MED LIST changes: +PREDNISONE20 M1 PO
[2018-11-17 20:02] VITALS: BP 140/65
== END 2018-11-17 21:17 | disposition home or self-care (01) ==
LOC: ED 19:58
DX: S80.11XA Contusion of right lower leg, initial encounter (principal); S80.811A Abrasion, right lower leg, initial encounter; Z79.82 Long term (current) use of aspirin; Z79.899 Other long term (current) drug therapy; W20.8XXA Other cause of strike by thrown, projected or falling object, initial encounter; Y93.89 Activity, other specified; Y92.89 Other specified places as the place of occurrence of the external cause; Y99.8 Other external cause status

== ENCOUNTER → 2018-12-12 | Outpatient (CLI) | payer OTHER ==
[2018-12-12 08:06] LABS: BASO % 0.8 % (0.0-1.0); EOS # 0.4 10*3/uL (0.0-0.4); EOS % 10.5 % (1.0-4.0); HEMATOCRIT 36.7 % (37.0-47.0); HEMOGLOBIN 11.8 g/dl (12.0-16.0); LYMPH % 25.9 % (27.0-41.0); MEAN CELL VOLUME 89.5 fl (81.0-99.0); MEAN CORPUSCULAR HGB 28.8 pg (27.0-31.0); MEAN CORPUSCULAR HGB CONC 32.2 g/dl (33.0-37.0); MEAN PLATELET VOLUME 9.7 fl (9.6-12.3); MONO # 0.6 10*3/uL (0.1-1.0); MONO % 14.4 % (3.0-9.0); NEUT # 1.9 10*3/uL (2.3-7.9); NEUT % 47.9 % (47.0-73.0); PLATELET COUNT AUTOMATED 215 10*3/uL (130-400); WHITE BLOOD COUNT 3.9 10*3/uL (4.8-10.8)
[2018-12-12 08:26] LABS: ALBUMIN 3.3 gm/dl (3.1-4.5); CREATININE 1.08 mg/dL (0.55-1.02); FREE T4 0.78 ng/dl (0.76-1.46); POTASSIUM 4.3 mmol/L (3.5-5.1); TOTAL PROTEIN 6.9 gm/dL (6.4-8.2)
[2018-12-12 08:31] LABS: THYROID STIM HORMONE (HS) 3.04 uIU/ml (0.358-4.75)
[2018-12-12 09:02] LABS: VITAMIN D, 25-HYDROXY 35.6 ng/mL (30-100)
== END | disposition home or self-care (01) ==
LOC: LAB 07:12
PROVIDERS: Internal Medicine
DX: I10 Essential (primary) hypertension (principal); E55.9 Vitamin D deficiency, unspecified; E78.2 Mixed hyperlipidemia

== ENCOUNTER 2019-03-19 13:48 | Inpatient (IN) | payer OTHER ==
[~2019-03-19] VITALS: Ht 160 cm; Wt 62.8 kg
[2019-03-19 13:48] VITALS: BP 123/75
[2019-03-19 14:41] LABS: BASO % 0.8 % (0.0-1.0); EOS # 0.2 10*3/uL (0.0-0.4); EOS % 4.2 % (1.0-4.0); HEMATOCRIT 36.5 % (37.0-47.0); HEMOGLOBIN 11.6 g/dl (12.0-16.0); LYMPH # 0.8 10*3/uL (1.3-4.4); LYMPH % 16.1 % (27.0-41.0); MEAN CELL VOLUME 90.8 fl (81.0-99.0); MEAN CORPUSCULAR HGB 28.9 pg (27.0-31.0); MEAN CORPUSCULAR HGB CONC 31.8 g/dl (33.0-37.0); MEAN PLATELET VOLUME 9.3 fl (9.6-12.3); MONO # 0.5 10*3/uL (0.1-1.0); MONO % 9.3 % (3.0-9.0); NEUT # 3.5 10*3/uL (2.3-7.9); NEUT % 69.2 % (47.0-73.0); PLATELET COUNT AUTOMATED 223 10*3/uL (130-400); RED BLOOD COUNT 4.02 10*6/uL (4.10-5.10); RED CELL DISTRI WIDTH 14.5 % (0-14.5)
[2019-03-19 14:52] LABS: ACT PARTIAL THROMBO TIME 26.8 SECONDS (20.0-32.1); INTERNATIONAL NORM RATIO 0.9 (2.0-3.5)
[2019-03-19 15:02] LABS: ALBUMIN 3.3 gm/dl (3.1-4.5); ALKALINE PHOSPHATASE 127 U/L (45-117); BUN 19 mg/dl (7-24); CHLORIDE 108 mmol/L (98-107); CREATININE 1.01 mg/dL (0.55-1.02); POTASSIUM 4.1 mmol/L (3.5-5.1); SGOT/AST 13 IU/L (3-35); SGPT/ALT 18 U/L (12-78); SODIUM 139 mmol/L (136-145); TOTAL PROTEIN 6.9 gm/dL (6.4-8.2)
[2019-03-19 15:03] LABS: BILIRUBIN NEGATIVE (NEGATIVE); BLOOD NEGATIVE (NEGATIVE); CLARITY SL CLOUDY (CLEAR); COLOR YELLOW (YELLOW); GLUCOSE NEGATIVE (NEGATIVE); KETONE NEGATIVE (NEGATIVE); LEUKO ESTERASE 1+ (NEGATIVE); NITRITE POSITIVE (NEGATIVE); PH 6.5 (5.0-9.0); SPECIFIC GRAVITY 1.015 (1.005-1.030); UROBILINOGEN 0.2 E.U./dl (0.2-1.0)
[2019-03-19 15:03] LABS: TROPONIN I < 0.015 ng/ml (<0.045)
[2019-03-19 15:10] LABS: BACTERIA 4+; EPITHELIAL CELLS 0-2; RBC 0-2 rbc/hpf (0-2)
[2019-03-19 17:54] VITALS: BP 100/63
[2019-03-19 20:45] VITALS: BP 104/57
[2019-03-20] VITALS: BP 133/64
[2019-03-20 03:17] VITALS: BP 104/71
[2019-03-20 08:00] VITALS: BP 149/60
[2019-03-20] MEDS ORDERED: AVALIDE 300-121 EACH PO (09:17)
[2019-03-20] MEDS ORDERED: Meclizine25 MG PO (09:22)
[2019-03-20] MEDS ORDERED: LOSARTAN-HCTZ1 EAC2 PO (09:32)
[2019-03-20 16:00] VITALS: BP 139/67
[2019-03-20 20:00] VITALS: BP 130/61
[2019-03-21] VITALS: BP 139/66
[2019-03-21 08:00] VITALS: BP 110/62
[2019-03-21 12:00] VITALS: BP 128/62
[2019-03-21 16:00] VITALS: BP 102/46
[2019-03-21 20:00] VITALS: BP 119/58
[2019-03-22] VITALS: BP 115/51
[2019-03-22 08:00] VITALS: BP 104/60
[2019-03-22] MEDS ORDERED: CEFUROXIME AXE250 MG PO (08:59)
== END 2019-03-22 09:49 | disposition home or self-care (01) | DRG 689 ==
LOC: ED 13:48 → 4E 16:28 → EDHOLD 16:28 → 4E 03-20 08:16
PROVIDERS: Physician Assistant; ADMIT Internal Medicine
DX: N39.0 Urinary tract infection, site not specified (principal); J18.9 Pneumonia, unspecified organism; R42 Dizziness and giddiness; I10 Essential (primary) hypertension; B96.1 Klebsiella pneumoniae [K. pneumoniae] as the cause of diseases classified elsewhere; K21.9 Gastro-esophageal reflux disease without esophagitis; Z96.653 Presence of artificial knee joint, bilateral; Z95.5 Presence of coronary angioplasty implant and graft; Z79.01 Long term (current) use of anticoagulants; Z95.2 Presence of prosthetic heart valve; Z88.8 Allergy status to other drugs, medicaments and biological substances; Z90.49 Acquired absence of other specified parts of digestive tract; Z80.8 Family history of malignant neoplasm of other organs or systems; Z82.3 Family history of stroke

== ENCOUNTER → 2019-11-25 | Outpatient (CLI) | payer OTHER ==
[~2019-11-25] MED LIST changes: +AVALIDE 300-121 EACH PO; +CEFUROXIME AXE250 MG PO; +LOSARTAN-HCTZ1 EAC2 PO; +Meclizine25 MG PO
[2019-11-25 08:37] LABS: HEMATOCRIT 36.4 % (37.0-47.0); MEAN CELL VOLUME 86.1 fl (81.0-99.0); MEAN CORPUSCULAR HGB 26.7 pg (27.0-31.0); MEAN PLATELET VOLUME 9.2 fl (9.6-12.3); PLATELET COUNT AUTOMATED 311 10*3/uL (130-400); RED BLOOD COUNT 4.23 10*6/uL (4.10-5.10)
[2019-11-25 08:39] LABS: POTASSIUM 3.8 mmol/L (3.5-5.1)
[2019-11-25 08:48] LABS: CREATININE 1.34 mg/dL (0.55-1.02); FREE T4 1.04 ng/dl (0.76-1.46); THYROID STIM HORMONE (HS) 2.34 uIU/ml (0.358-4.75); TOTAL PROTEIN 7.6 gm/dL (6.4-8.2)
[2019-11-25 09:50] LABS: VITAMIN D, 25-HYDROXY 25.9 ng/mL (30-100)
[2019-11-25 10:53] LABS: PLATELET SUFFICIENCY NORMAL (NORMAL); TOTAL CELLS COUNTED 100 #CELLS
== END | disposition home or self-care (01) ==
LOC: LAB 07:22
PROVIDERS: ATTEND Internal Medicine
DX: E78.2 Mixed hyperlipidemia (principal); E55.9 Vitamin D deficiency, unspecified; I10 Essential (primary) hypertension; Z00.00 Encounter for general adult medical examination without abnormal findings

== ENCOUNTER → 2020-11-23 | Outpatient (CLI) | payer OTHER ==
[2020-11-23 08:30] LABS: BASO # 0.1 10*3/uL (0.0-0.1); EOS # 0.6 10*3/uL (0.0-0.4); EOS % 9.5 % (1.0-4.0); HEMATOCRIT 35.9 % (37.0-47.0); LYMPH # 1.5 10*3/uL (1.3-4.4); LYMPH % 25.3 % (27.0-41.0); MEAN CELL VOLUME 87.6 fl (81.0-99.0); MEAN CORPUSCULAR HGB 26.6 pg (27.0-31.0); MEAN CORPUSCULAR HGB CONC 30.4 g/dl (33.0-37.0); MONO # 0.6 10*3/uL (0.1-1.0); MONO % 10.4 % (3.0-9.0); NEUT # 3.3 10*3/uL (2.3-7.9); NEUT % 53.5 % (47.0-73.0); PLATELET COUNT AUTOMATED 237 10*3/uL (130-400); RED CELL DISTRI WIDTH 16.1 % (0-14.5); WHITE BLOOD COUNT 6.1 10*3/uL (4.8-10.8)
[2020-11-23 08:47] LABS: ALBUMIN 2.9 gm/dl (3.1-4.5); CREATININE 1.35 mg/dL (0.55-1.02); FREE T4 0.8 ng/dl (0.76-1.46); POTASSIUM 4.2 mmol/L (3.5-5.1); TOTAL PROTEIN 7.1 gm/dL (6.4-8.2)
[2020-11-23 08:52] LABS: THYROID STIM HORMONE (HS) 2.72 uIU/ml (0.358-4.75)
[2020-11-23 09:24] LABS: VITAMIN D, 25-HYDROXY 37.3 ng/mL (30-100)
== END | disposition home or self-care (01) ==
LOC: LAB 08:15
PROVIDERS: ATTEND Internal Medicine
DX: I10 Essential (primary) hypertension (principal); E78.5 Hyperlipidemia, unspecified; E55.9 Vitamin D deficiency, unspecified

== ENCOUNTER → 2021-03-11 | Outpatient (CLI) | payer OTHER ==
[~2021-03-11] MED LIST changes: +PRILOSEC20 M1 PO; +SYMB80 INH; +TRAZODONE50 MG PO; +ZOFRAN4 MG PO
[2021-03-11 16:43] LABS: BASO # 0.1 10*3/uL (0.0-0.1); BASO % 0.9 % (0.0-1.0); EOS # 0.4 10*3/uL (0.0-0.4); HEMATOCRIT 34.8 % (37.0-47.0); LYMPH # 1.5 10*3/uL (1.3-4.4); LYMPH % 26.9 % (27.0-41.0); MEAN CELL VOLUME 86.6 fl (81.0-99.0); MEAN CORPUSCULAR HGB 26.6 pg (27.0-31.0); MEAN CORPUSCULAR HGB CONC 30.7 g/dl (33.0-37.0); MEAN PLATELET VOLUME 9.3 fl (9.6-12.3); MONO # 0.8 10*3/uL (0.1-1.0); MONO % 13.2 % (3.0-9.0); NEUT # 2.9 10*3/uL (2.3-7.9); NEUT % 51.5 % (47.0-73.0); PLATELET COUNT AUTOMATED 301 10*3/uL (130-400); RED BLOOD COUNT 4.02 10*6/uL (4.10-5.10); RED CELL DISTRI WIDTH 16.3 % (0-14.5); WHITE BLOOD COUNT 5.7 10*3/uL (4.8-10.8)
== END | disposition home or self-care (01) ==
LOC: US 15:30 → LAB 15:39
PROVIDERS: ATTEND Internal Medicine
DX: R60.0 Localized edema (principal); R19.7 Diarrhea, unspecified